=== PATIENT | female | born 1965 | race Caucasian/White ===

== ENCOUNTER 2017-08-05 07:46 | Emergency (ER) | payer OTHER ==
--- NOTE | 2017-08-05 09:00 | RAD ---
INDICATION: Possible jaw dislocation after yawning COMPARISON: None. TECHNIQUE: 5 views of the mandible were obtained. FINDINGS: Depicted best on the lateral view image there appears to be anterior dislocation of the mandibular head from the mandibular fossa of the temporal bone. Frontal radiograph indicates this is on the left side. There is no fracture identified. IMPRESSION: Radiographic findings are consistent with anterior left temporal mandibular dislocation. Please correlate to physical examination.
[2017-08-05] MEDS ORDERED: Naloxone* 0.4 MG/ML 1 ML VIAL ONE (10:48)
[2017-08-05] MEDS ORDERED: Flumazenil* 0.1 MG/ML 5 ML MDV ONE (10:48)
[2017-08-05] MEDS ORDERED: Midazolam* 1 MG/ML 10 ML VIAL (10 MG) ONE (10:50)
[2017-08-05] MEDS: fentaNYL* 50 MCG/ML 2 ML VIAL (100 MCG VIAL) IV SLOW PU ONE ×2 (11:05→11:56)
[2017-08-05] MEDS: Ondansetron INJ* 2 MG/ML VIAL IV ONE ×2 (11:07→11:57)
[2017-08-05] MEDS ORDERED: Ondansetron INJ* 2 MG/ML VIAL ONE (11:07)
[2017-08-05] MEDS: Midazolam* 1 MG/ML 2 ML VIAL (2 MG) IV ONE ×3 (11:09→11:57)
--- NOTE | 2017-08-05 12:30 | RAD ---
INDICATION: Atraumatic jaw dislocation COMPARISON: August 05, 2017 TECHNIQUE: 3 views are submitted FINDINGS: The current plain radiograph shows no definitive evidence of dislocation. If this is not the clinical impression, suggest CT imaging. There is no acute bony change. IMPRESSION: NO DEFINITIVE DISLOCATION (SEE ABOVE).
[2017-08-05 13:36] VITALS: BP 111/49
--- NOTE | 2017-08-05 15:07 | ED ---
Throat Pain/Nasal Congestion - HPI Summary HPI Summary: Patient is a 52-year-old female who presents to the ED with a right sided jaw dislocation after yawning this morning approximately 3 hours prior to arrival. Denies any other symptoms. Endorses 5 out of 10 pain. She continues to be able to talk. She endorses 2 other times of her jaw dislocating, and states previously they had to sedate her to get it reduced. She denies any health problems, takes no medications and is otherwise healthy. - History of Current Complaint Chief Complaint: EDGeneral Time Seen by Provider: 08/05/17 08:58 Hx Obtained From: Patient Onset/Duration: Sudden Onset Severity: Mild Associated Signs And Symptoms: Positive: Negative - Epiglottits Risk Factors Epiglottis Risk Factors: Negative - Allergies/Home Medications Allergies/Adverse Reactions: Allergies Allergy/AdvReac Type Severity Reaction Status Date / Time unknown antibiotic Allergy Rash Uncoded 08/05/17 08:18 PMH/Surg Hx/FS Hx/Imm Hx Previously Healthy: Yes - Cancer History Hx Chemotherapy: No Hx Radiation Therapy: No - Surgical History Surgery Procedure, Year, and Place: FATTY LIPOMA RIGHT ARMPIT 1997, BENIGN LUMP REMOVED RIGHT BREAST 2011 - Immunization History Hx Pertussis Vaccination: No Immunizations Up to Date: Unable to Obtain/Confirm Infectious Disease History: Yes Infectious Disease History: Denies: Traveled Outside the [place] in Last 30 Days - Social History Occupation: Employed Full-time Lives: With Family Alcohol Use: Weekly Hx Substance Use: No Substance Use Type: Reports: None Hx Tobacco Use: No Smoking Status (MU): Never Smoked Tobacco Review of Systems Constitutional: Negative Negative: Fever, Chills, Fatigue Eyes: Negative Positive: Other - jaw dislocation Cardiovascular: Negative Respiratory: Negative Genitourinary: Negative Positive: no symptoms reported, see HPI Musculoskeletal: Negative Psychological: Normal All Other Systems Reviewed And Are Negative: Yes Physical Exam Triage Information Reviewed: Yes Vital Signs On Initial Exam: Initial Vitals Temp Pulse Resp BP Pulse Ox 97.6 F 59 16 122/63 96 08/05/17 07:55 08/05/17 07:55 08/05/17 07:55 08/05/17 07:55 08/05/17 07:55 Vital Signs Reviewed: Yes Appearance: Positive: Well-Appearing, Well-Nourished Skin: Positive: Warm, Skin Color Reflects Adequate Perfusion Head/Face: Positive: TMJ Tenderness - Jaw dislocation to the right Eyes: Positive: EOMI, JI, Conjunctiva Clear Neck: Positive: Supple, Nontender, No Lymphadenopathy Respiratory/Lung Sounds: Positive: Clear to Auscultation, Breath Sounds Present Cardiovascular: Positive: Normal, RRR, Pulses are Symmetrical in both Upper and Lower Extremities Musculoskeletal: Positive: Normal, Strength/ROM Intact Neurological: Positive: Speech Normal Psychiatric: Positive: Normal, Affect/Mood Appropriate Diagnostics - Vital Signs Vital Signs Temp Pulse Resp BP Pulse Ox 08/05/17 13:34 98.0 F 48 18 111/49 100 08/05/17 13:14 118/53 08/05/17 13:12 47 100 08/05/17 13:00 45 120/53 100 08/05/17 12:46 47 144/96 100 08/05/17 12:42 113/56 08/05/17 11:45 43 105/54 99 08/05/17 11:42 46 107/56 99 08/05/17 11:40 45 106/53 99 08/05/17 11:35 45 107/55 98 08/05/17 11:32 47 104/55 97 08/05/17 11:30 44 107/56 98 08/05/17 11:27 54 108/59 97 08/05/17 11:25 50 114/58 97 08/05/17 11:22 51 107/81 97 08/05/17 11:20 50 111/52 97 08/05/17 11:17 56 115/53 96 08/05/17 11:15 57 111/65 96 08/05/17 11:12 62 122/59 98 08/05/17 11:10 55 122/67 100 08/05/17 11:05 61 138/71 100 08/05/17 11:00 58 100 08/05/17 10:00 59 100 08/05/17 09:00 51 100 08/05/17 08:07 61 99 08/05/17 08:05 120/67 08/05/17 07:55 97.6 F 59 16 122/63 96 - Laboratory Lab Statement: Any lab studies that have been ordered have been reviewed, and results considered in the medical decision making process. EENT Course/Dx - Course Course Of Treatment: During the course of treatment, the patient is evaluated for right-sided jaw dislocation. On x-ray: IMPRESSION: Radiographic findings are consistent with anterior left temporal mandibular. dislocation. Dr. Persaud provided conscious sedation with fentanyl and Versed with effect. Manipulation of the jaw with successful relocation. Status post reduction films shows no dislocation in place and patient is talking well. Prior to arrival her heart rate is noted to be a 48. She states this is consistent for her and she is asymptomatic. She is ambulatory around the ED twice with no increase in heart rate. I have advised she follow up on this, however I am comfortable with sending her home in the accompaniment of her family member. - Diagnoses Provider Diagnoses: Dislocation of jaw, right side, initial encounter Discharge - Discharge Plan Condition: Stable Disposition: HOME Patient Education Materials: Mandibular Dislocation (ED) Referrals: Jose Alberto Mendoza MD [Primary Care Provider] - Additional Instructions: Tylenol 650 mg for any discomfort
--- NOTE | 2017-08-06 18:45 | ED ---
Ismael Gonzales Thomas, scribed for Mina Persaud MD on 08/05/17 at 1831 . Progress - Progress Note Progress Note: I was asked by Arcelia Cuenca to help reduce a jaw dislocation with conscious sedation for this patient. PROCEDURE NOTE: PROCEDURE NOTE: Procedural Sedation Indications: Jaw dislocation [place] Protocol: a timeout was performed and the correct patient and site were verified Consent: The risks and benefits of monitored anesthesia care, including the risk of aspiration, deep sedation requiring airway management including possible intubation, nausea and vomiting and the risks of not performing the procedure, including severe pain and inability to complete the procedure, were all discussed with the patient. The alternatives of performing the procedure, including local anesthesia and IV analgesia, also discussed. The patient has a ride home available. ASA Class: II-mild systemic disease Pre-anesthesia evaluation, including history, exam, and informed consent is documented in the ED note above. Monitoring: Continuous monitoring of heart rate, respiratory rate, pulse oximetry and ETCO2. Supplemental oxygen prior to and during procedure via nasal cannula. Resuscitation equipment available at the bedside during sedation. The patient received Versed and Fentanyl and dosages were recorded on the sedation form. The patient was recovered from the sedation without complication or incident. Patient returned to pre-sedation level of awareness. The monitoring was discontinued at this time. Post-anesthesia evaluation: Respiratory function, cardiovascular function, temperature, and mental status did return to pre-anesthetic state. Pain is controlled. The jaw dislocation was successfully reduced. At this point, the patient is alert and oriented x3. Arcelia Hewitt will continue with assessment and treatment of the patient. The documentation as recorded by the Ismael callahan Thomas accurately reflects the service I personally performed and the decisions made by Hung rubio Walter, MD.
== END 2017-08-05 13:36 | disposition home or self-care (01) ==
LOC: ED 07:46
DX: S03.01XA Dislocation of jaw, right side, initial encounter (principal); X58.XXXA Exposure to other specified factors, initial encounter; Y92.9 Unspecified place or not applicable
CPT/HCPCS: 21480; 70110; 96374; 96375; 99284; J2250; J2310; J2405; J3010

== ENCOUNTER 2019-02-25 15:38 | Emergency (ER) | payer OTHER ==
[2019-02-25 15:44] VITALS: BP 129/71
--- NOTE | 2019-02-25 18:43 | ED ---
Skin Complaint - HPI Summary HPI Summary: Patient complains of waking up with circular bruise with possible puncture winslow inside it on medial left arm this morning. Patient states she slept in an old building last night and is concerned for possible bat bite. Patient states she never saw any bats. Denies any other pain injury or symptoms. Denies itching or pain. - History of Current Complaint Chief Complaint: EDRashSkinAbscess Time Seen by Provider: 02/25/19 17:47 Stated Complaint: BITE ON LT ARM PER PT Hx Obtained From: Patient Onset/Duration: Started Hours Ago Skin Exposure Onset/Duration: Hours Ago Timing: Constant Current Severity: None Pain Intensity: 0 Pain Scale Used: 0-10 Numeric Aggravating Symptom(s): Nothing Alleviating Symptom(s): Nothing Associated Signs & Symptoms: Negative - Allergy/Home Medications Allergies/Adverse Reactions: Allergies Allergy/AdvReac Type Severity Reaction Status Date / Time unknown antibiotic Allergy Rash Uncoded 08/05/17 08:18 Home Medications: Home Medications LevoCETirizine TAB (NF) [Xyzal TAB (NF)] 5 mg PO DAILY 02/25/19 [History Confirmed 02/25/19] PMH/Surg Hx/FS Hx/Imm Hx Endocrine/Hematology History: Denies: Hx Anticoagulant Therapy Cardiovascular History: Denies: Hx Pacemaker/ICD History: Denies: Hx Dialysis Sensory History: Denies: Hx Eye Prosthesis Opthamlomology History: Denies: Hx Legally Blind EENT History: Denies: Hx Deafness Neurological History: Denies: Hx Dementia - Cancer History Hx Chemotherapy: No Hx Radiation Therapy: No - Surgical History Surgery Procedure, Year, and Place: FATTY LIPOMA RIGHT ARMPIT 1997, BENIGN LUMP REMOVED RIGHT BREAST 2011 Infectious Disease History: No Infectious Disease History: Denies: Traveled Outside the [place] in Last 30 Days - Family History Known Family History: Positive: Non-Contributory - Social History Alcohol Use: Weekly Hx Substance Use: No Substance Use Type: Reports: None Hx Tobacco Use: No Smoking Status (MU): Never Smoked Tobacco Review of Systems Constitutional: Negative Eyes: Negative ENT: Negative Cardiovascular: Negative Respiratory: Negative Gastrointestinal: Negative Genitourinary: Negative Musculoskeletal: Negative Positive: Bruising Neurological: Negative Psychological: Normal All Other Systems Reviewed And Are Negative: Yes Physical Exam - Summary Physical Exam Summary: 2 cm x 2 cm circular area of ecchymosis with four pinpoint scabs. Pinpoint scabs appear in random order. No pain with palpation. No extra warmth Triage Information Reviewed: Yes Vital Signs On Initial Exam: Initial Vitals Temp Pulse Resp BP Pulse Ox 98.1 F 63 12 129/71 99 02/25/19 15:42 02/25/19 15:42 02/25/19 15:42 02/25/19 15:42 02/25/19 15:42 Vital Signs Reviewed: Yes Appearance: Positive: Well-Appearing Skin: Positive: Warm Head/Face: Positive: Normal Head/Face Inspection Eyes: Positive: Normal ENT: Positive: Normal ENT inspection Neck: Positive: Supple Respiratory/Lung Sounds: Positive: Clear to Auscultation Cardiovascular: Positive: Normal Abdomen Description: Positive: Nontender Musculoskeletal: Positive: Normal Neurological: Positive: Normal Psychiatric: Positive: Normal AVPU Assessment: Alert - Lilly Coma Scale Best Eye Response: 4 - Spontaneous Best Motor Response: 6 - Obeys Commands Best Verbal Response: 5 - Oriented Coma Scale Total: 15 Diagnostics - Vital Signs Vital Signs Temp Pulse Resp BP Pulse Ox 02/25/19 15:42 98.1 F 63 12 129/71 99 - Laboratory Lab Statement: Any lab studies that have been ordered have been reviewed, and results considered in the medical decision making process. Course/Dx - Course Course Of Treatment: Patient complains of waking up with circular bruise with possible puncture winslow inside it on medial left arm this morning. Patient states she slept in an old building last night and is concerned for possible bat bite. Patient states she never saw any bats. Denies any other pain injury or symptoms. Denies itching or pain. Vital signs within normal limits. Discussed patient with Cheri Hernandez from [facility] who stated patient did not meet criteria for possible exposure nor authorization of rabies treatment. - Diagnoses Provider Diagnoses: Bruising Discharge ED - Sign-Out/Discharge Documenting (check all that apply): Patient Departure Patient Received Moderate/Deep Sedation with Procedure: No - Discharge Plan Condition: Stable Disposition: HOME Patient Education Materials: Animal Bite (ED), Insect Bite or Sting (ED) Referrals: Jose Alberto Mendoza MD [Primary Care Provider] - Additional Instructions: For any further questions please contact [facility] department at [phone]. - Billing Disposition and Condition Condition: STABLE Disposition: Home
== END 2019-02-25 19:16 | disposition home or self-care (01) ==
LOC: ED 15:38
DX: S40.022A Contusion of left upper arm, initial encounter (principal); W64.XXXA Exposure to other animate mechanical forces, initial encounter; Y92.9 Unspecified place or not applicable; Z79.899 Other long term (current) drug therapy
CPT/HCPCS: 99282

== ENCOUNTER 2019-08-09 15:17 | Observation (INO) | payer OTHER ==
--- NOTE | 2019-08-09 15:33 | ED ---
Neurological HPI - HPI Summary HPI Summary: 54 year old F arriving via private car complains of intermittent episodes of dysarthria, aphasia, slurred speech starting Tuesday08/06/2019 PM while speaking in work meeting. Patient states that during this meeting, she realized the thoughts that she was thinking in her head were not the words coming out of her mouth. Patient reports difficulty finding words and slurred speech then. She states she thought she may not have eaten well Sunday 08/06 so she tried to eat better on Monday 08/07 and Tuesday 08/08. She states she primarily notices symptoms in work meetings. She states that she was concerned about job dysfunction today so she called her primary care provider who referred her to the ED. Patient notes no change in symptoms today. Patient reports some blurred vision. Patient denies fever, chills, erythema of eyes, sore throat, chest pain , shortness of breath, cough, abdominal pain, nausea/vomiting, dysuria, hematuria, myalgia, edema, rash, dizziness, unsteady gait, any new numbness or tingliness in extremities. Medications reviewed. Allergies reviewed. No PMHx hypertension. 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 Patient states her cousin has MS-like symptoms. - History of Current Complaint Stated Complaint: STROKE LIKE SYMPTOMS Hx Obtained From: Patient Onset/Duration: Started days ago - 08/06/2019 PM, Still Present Timing: Intermittent Episodes Lasting: - Allergy/Home Medications Allergies/Adverse Reactions: Allergies Allergy/AdvReac Type Severity Reaction Status Date / Time unknown antibiotic Allergy Rash Uncoded 08/05/17 08:18 PMH/Surg Hx/FS Hx/Imm Hx Endocrine/Hematology History: Denies: Hx Anticoagulant Therapy Cardiovascular History: Denies: Hx Hypertension Respiratory History: Reports: Hx Seasonal Allergies History: Denies: Hx Dialysis Sensory History: Reports: Hx Contacts or Glasses Opthamlomology History: Reports: Hx Contacts or Glasses - Cancer History Hx Chemotherapy: No Hx Radiation Therapy: No - Surgical History Surgery Procedure, Year, and Place: FATTY LIPOMA RIGHT ARMPIT 1997, BENIGN LUMP REMOVED RIGHT BREAST 2011 - Family History Known Family History: Positive: Other - NEG: stroke Family History: cousin has MS-like symptoms - Social History Alcohol Use: Weekly Hx Substance Use: No Substance Use Type: Reports: None Hx Tobacco Use: No Smoking Status (MU): Never Smoked Tobacco Review of Systems Negative: Fever, Chills Positive: Blurred Vision. Negative: Erythema Negative: Sore Throat Negative: Chest Pain Negative: Shortness Of Breath, Cough Negative: Abdominal Pain, Vomiting, Nausea Negative: dysuria, hematuria Negative: Myalgia, Edema Negative: Rash Neurological/Mental Status: Negative - Dizziness, unsteady gait, numbness or tingliness in extremities, Other - dysarthria, aphasia Positive: Slurred Speech All Other Systems Reviewed And Are Negative: Yes Physical Exam - Summary Physical Exam Summary: Constitutional: Well-developed, Well-nourished, Alert. (-) Distressed Skin: Warm, Dry HENT: Normocephalic; Atraumatic Eyes: Conjunctiva normal Neck: Musculoskeletal ROM normal neck. (-) JVD, (-) Stridor, (-) Tracheal deviation Cardio: Rhythm regular, rate normal, Heart sounds normal; Intact distal pulses; The pedal pulses are 2+ and symmetric. Radial pulses are 2+ and symmetric. (-) Murmur Pulmonary/Chest wall: Effort normal. (-) Respiratory distress, (-) Wheezes, (-) Rales Abd: Soft. (-) Tenderness, (-) Distension, (-) Guarding, (-) Rebound Musculoskeletal: (-) Edema Lymph: (-) Cervical adenopathy Neuro: Alert, Oriented x3, Strength normal, Cranial nerves II-XII are grossly intact. (-) Dysmetria, (-) Nystagmus, (-) Ataxia by finger to nose testing, (-) Sensory deficit. Psych: Mood and affect Normal Triage Information Reviewed: Yes Vital Signs Reviewed: Yes Procedures - Sedation Patient Received Moderate/Deep Sedation with Procedure: No Diagnostics - Laboratory Result Diagrams: 08/09/19 15:39 08/09/19 15:39 Lab Statement: Any lab studies that have been ordered have been reviewed, and results considered in the medical decision making process. - CT Head CTA CT Interpretation Completed By: Radiologist Summary of CT Findings: 1. NO EVIDENCE FOR CAROTID STENOSIS. 2. NO EVIDENCE FOR LARGE VESSEL INTRACRANIAL THROMBUS. ED physician has reviewed this report. - EKG 1535 Cardiac Rate: Bradycardia - 57 BPM EKG Rhythm: Sinus Bradycardia Summary of EKG Findings: No STEMI. ED physician has reviewed and interpreted this EKG. - Additional Comments Diagnostic Additional Comments: Brain MRI shows, per radiologist: No acute intracranial abnormality. No imaging evidence of demyelination. ED physician has reviewed this report. Re-Evaluation - Re-Evaluation First Eval Re-Evaluation Time: 17:25 Comment: patient is agreeable to admission Course/Dx - Course Course Of Treatment: 54 y/o F with no pertinent PMHx presents with intermittent episodes of dysarthria, aphasia, slurred speech, blurred vision starting Tuesday08/06/2019 PM while speaking in work meeting. During this meeting, she realized the thoughts that she was thinking in her head were not the words coming out of her mouth, she had difficulty finding words and was having slurred speech. She continued to have similar episodes over the next two days during work meetings. Patient notes no change in symptoms today. No PMHx hypertension. 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 Physical exam unremarkable. Neuro exam normal. Any dysarthria or aphasia she may have is quite subtle. Bloodwork results with no significant abnormalities except for AST 11. An EKG shows sinus bradycardia 57 BPM. No STEMI. Head CTA shows 1. NO EVIDENCE FOR CAROTID STENOSIS. 2. NO EVIDENCE FOR LARGE VESSEL INTRACRANIAL THROMBUS. Brain MRI shows No acute intracranial abnormality. No imaging evidence of demyelination. Dr. Piper, neurology, recommends overnight observation, telemetry , and echocardiogram in the morning, and to appropach patient as if she has TIA. Dr. Flores, hospitalist, agrees to admit patient. The patient is agreeable to this plan. - Diagnoses Provider Diagnoses: Hypertensive crisis, TIA (transient ischemic attack), Slurred speech - Physician Notifications Discussed Care Of Patient With: Jesse Piper Time Discussed With Above Provider: 17:20 Instructed by Provider To: Other - Dr. Piper neurology recommends overnight observation, telemetry, and echocardiogram in the morning, and to appropach patient as if she has TIA. 1731 Dr. Flores hospitalist agrees to admit patient Discharge ED - Sign-Out/Discharge Documenting (check all that apply): Patient Departure - Discharge Plan Condition: Stable Disposition: ADMITTED TO [facility] Referrals: Jose Alberto Mendoza MD [Primary Care Provider] - - Attestation Statements Document Initiated by Scribe: Yes Documenting Scribe: Merary Patel Provider For Whom Scribe is Documenting (Include Credential): Devon Alamo MD Scribe Attestation: Merary Gonzales, scribed for Devon Alamo MD on 08/09/19 at 1751. Status of Scribe Document: Ready
[2019-08-09 15:57] LABS: ABS Eosinophils 0.1 10^3/ul (0-0.6); ABS Lymphocytes 2.2 10^3/ul (1.0-4.8); ABS Monocytes 0.5 10^3/ul (0-0.8); Eosinophil % 1.2 %; Hematocrit 37 % (35-47); Hemoglobin 12.5 g/dL (12.0-16.0); Lymphocyte % 32.3 %; Mean Corpuscular HGB Conc 34 g/dL (31-36); Mean Corpuscular Hemoglobin 31 pg (27-31); Mean Corpuscular Volume 93 fL (80-97); Mean Platelet Volume 7.9 fL (7.4-10.4); Platelet Count 335 10^3/uL (150-450); Red Blood Count 4.01 10^6 /uL (3.70-4.87); Red Cell Distribution Width 13 % (10-15); White Blood Count 6.8 10^3/uL (3.5-10.8)
[2019-08-09] MEDS ORDERED: Gadoteridol* (CONTRAST) 279.3 MG/ML 10 ML IV ONE (16:03)
[2019-08-09 16:14] LABS: Albumin 4.2 g/dL (3.2-5.2); Albumin/Globulin Ratio 1.7 (1-3); BUN/Creatinine Ratio 17.6 (8-20); EGFR Non-African American 70.2 (>60); Globulin 2.5 g/dL (2-4); Potassium 3.8 mmol/L (3.5-5.0); Total Bilirubin 0.4 mg/dL (0.2-1.0); Total Protein 6.7 g/dL (6.4-8.9)
[2019-08-09] MEDS ORDERED: Iohexol 350* (CONTRAST) 500 ML MDV IV ONE (16:49)
[2019-08-09] MEDS ORDERED: Acetaminophen TAB* 325 MG PO PRN (18:06)
[2019-08-09] MEDS ORDERED: Aspirin 81 mg CHEW TAB* 81 MG TAB.CHEW PO ONE (19:08)
--- NOTE | 2019-08-09 20:20 | HP ---
CC: Dr. Mendoza * HISTORY AND PHYSICAL: DATE OF ADMISSION: 08/09/19 PROVIDER: Angela Crane NP PRIMARY CARE PROVIDER: Dr. Mendoza. ATTENDING PHYSICIAN WHILE IN THE HOSPITAL: Dr. Sarah Mendosa * (dictated by Angela Crane NP). CHIEF COMPLAINT: Slurred speech. HISTORY OF PRESENT ILLNESS: Ms. Gonzalez is a 54-year-old female with a past medical history significant for asthma and melanoma, who presented to the emergency room after experiencing several episodes of jumbled speech and slurred speech. The patient does report that she has difficulty with word finding and an enunciating words and slurred speech during her meetings. The patient reports that she typically does not have any issues with talking or presenting in meetings as this is a normal routine for her. The patient reports she has the words in her head that she wants to say and she goes to say them and reports that the words do not come out right, the words are garbled and slurred. She does report that this started on Tuesday. She also reports that during these episodes, she has blurred vision. She reports that she takes her glasses off and puts her glasses back on and there is no change. She feels that her vision is blurred with these episodes and due to these symptoms, she presented to the emergency room for further evaluation. The patient denies any recent fever, chills, unintended weight loss, chest pain, edema, cough, hemoptysis, shortness of breath, nausea, vomiting, diarrhea, or abdominal pain. Denies any gross hematuria, dysuria, focal weakness, or sensory loss. She does report a blurred vision. She denies any difficulty swallowing, dizziness. Denies any arthralgias, myalgias, rashes, lesions, open sores. She does report some increased anxiety and increased stress. While in the emergency room, the patient had routine lab work drawn. She had an MRI of the brain that was within normal limits. She had a CT of the head that showed no evidence of stenosis. Dr. Piper from Neurology was consulted and recommended admission for observation overnight and a transthoracic echocardiogram in the a.m. Due to this, the Hospital Medicine was contacted for admission. PAST MEDICAL HISTORY: Significant for: 1. Asthma. 2. Melanoma. PAST SURGICAL HISTORY: Melanoma removed from the skin, lumpectomy and tonsillectomy. HOME MEDICATIONS: Include Xyzal 1 tablet p.o. daily. ALLERGIES: ANCEF causes a rash. FAMILY HISTORY: Father collapsed and at the age of 64 from suspected [place]. Paternal grandmother with diabetes and father with a history of bone cancer. SOCIAL HISTORY: Denies any tobacco or illicit drug use. She does report occasional alcohol use. Surrogate decision maker in the event she is unable to make her own decisions is her , Misael. She is a full code. REVIEW OF SYSTEMS: A 14-point review of systems was completed. All pertinent positives were mentioned in the HPI. PHYSICAL EXAMINATION GENERAL: At this time, Ms. Gonzalez is a 54-year-old female. She is alert and oriented, resting on the stretcher in the emergency room. She is in no acute distress. VITAL SIGNS: Blood pressure 134/89, heart rate 60, respirations 16, O2 saturation 98%, temperature was 98.3. HEENT: Head is atraumatic, normocephalic. Eyes: EOMs are intact. Sclerae anicteric and not pale. Oral mucosa is moist. NECK: Supple. LUNGS: Clear to auscultation bilaterally. No wheezes, rales, or rhonchi. CARDIAC: S1, S2. Regular rate and rhythm. No murmurs, rubs, or gallops. ABDOMEN: Soft and nontender. Bowel sounds are present x4. EXTREMITIES: She is able to move all 4 extremities. There is no clubbing or cyanosis. NEUROLOGIC: She is awake, alert, oriented x3. Speech is clear. Thought process is intact. Mfqakg-zt-[id number] is intact. There is no pronator drift. There is no leg drift. Smile is equal. Tongue is midline. There is no facial asymmetries. Sensation is intact to all 4 extremities. SKIN: Intact. DIAGNOSTIC STUDIES/LAB DATA: WBCs are 6.8, RBCs 4.01, hemoglobin 12.5, hematocrit 37, platelet count 335. Sodium 139, potassium 3.8, chloride 107, carbon dioxide is 27, anion gap is 5, BUN is 15, creatinine 0.85, glucose 87, lactic acid 1.3, calcium 9.0. Total bilirubin 0.40, ASTs were 11, ALTs were 11 , alkaline phosphatase was 42. Troponin was 0.00 x2. She had a CT of the head that showed no evidence of carotid stenosis, no evidence of large vessel intracranial thrombus. She had an MRI of the brain, radiologist's impression: No acute intracranial abnormality. No imaging evidence of demyelination. She had electrocardiogram, which showed sinus bradycardia at a rate of 57. No ST or T-wave changes. ASSESSMENT AND PLAN: Ms. Gonzalez is a 54-year-old female with a past medical history significant for asthma and melanoma, who presented to the emergency room with garbled and slurred speech, who will be admitted under observation: 1. Speech disturbance. It is unclear at this time the cause of he speech disturbance. The patient reports that this is only notable when she is in meetings and is associated with blurred vision. She did have a CTA of the head and neck that showed no large vessel occlusion and no stenosis. She had an MRI of the brain that showed no acute pathology. At this time, she has no neurological deficits. Dr. Piper from Neurology was consulted and recommended observation admission for a transthoracic echocardiogram in the morning. The patient will be placed under observation. She will have neuro checks q.4 hours. I will give her aspirin 324 mg. I will get a lipid profile in the a.m. and a transthoracic echocardiogram with bubble study. 2. Diet: She can have a regular diet. 3. Code status: She is a full code. 4. DVT prophylaxis: I will place her on LUCIA stockings. She can ambulate ad- ish. TIME SPENT: Time spent on this admission was 60 minutes, greater than half that time was spent at the bedside reviewing events leading thus far to her hospitalization, performing physical exam, and reviewing my plan of care. I have discussed this with my attending, Dr. Sarah Mendosa; she is in agreement with my plan. ANGELA CRANE, DIESEL TECHNICIAN [id number]/[facility] #: [id number] SHIRIN
[2019-08-09 22:56] LABS: C Reactive Protein < 1.00 mg/L (<8.01)
[2019-08-09 23:02] LABS: Rheumatoid Factor < 10 IU/mL (<15)
[2019-08-09 23:17] LABS: TSH (Thyroid Stimulating Horm) 1.64 mcIU/mL (0.34-5.60)
[2019-08-09 23:22] LABS: Free T4 0.95 ng/dL (0.61-1.12)
[2019-08-09 23:29] LABS: Folate 13.48 ng/mL (>3.99)
[2019-08-10 07:07] LABS: HDL Cholesterol 61.4 mg/dL
--- NOTE | 2019-08-10 13:05 | ECHO ---
*[facility]* [place] [address] Fax #: [phone] Transthoracic Echocardiogram Patient: Laverne Gonzalez : 1965 Study Date: 08/10/2019 Age: 54 Gender: F HR: 53 bpm Height: 65 in /165.1 cm BSA: 1.72 m^2 Weight: 142.7 lb /64.9 kg BMI: 23.8 kg/m^2 *Administrative Program Specialist: * Ruby Kendrick [facility] *Referring Physician: * Angela Crane *Reading Physician: * Darren Donnelly MD Indications: TIA. History: Asthma. Melanoma. Conclusions Summary: - Left ventricle: The cavity size is normal. Wall thickness is normal. Systolic function is normal. The estimated ejection fraction is 60-65%. Wall motion is normal; there are no regional wall motion abnormalities. - Right ventricle: The cavity size is normal. Systolic function is normal. - Left atrium: The atrium is normal in size. - Atrial septum: Negative Bubble Study. Images 95 and 96. - Pericardium, extracardiac: There is no significant pericardial effusion. - Pulmonary arteries: Systolic pressure can not be accurately estimated. - No significant valvular abnormalities noted. Recommendations: None prior for comparison at time of interpretation. Study data: Transthoracic echocardiogram. Procedure: Transthoracic echocardiography was performed. Image quality was fair. The study was technically limited due to lung interference. A bubble study was performed. Complete 2D, spectral Doppler, and color flow Doppler. Location: Bedside. Patient status: Inpatient. Patient room number: 441-02. Rhythm: Bradycardia. Findings Left ventricle: The cavity size is normal. Wall thickness is normal. Systolic function is normal. The estimated ejection fraction is 60-65%. Wall motion is normal; there are no regional wall motion abnormalities. Left ventricular diastolic function parameters are normal. Right ventricle: The cavity size is normal. Systolic function is normal. Left atrium: The atrium is normal in size. Right atrium: The atrium is normal in size. Atrial septum: A PFO is not demonstrated by color Doppler or agitated saline contrast. Negative Bubble Study. Images 95 and 96. Mitral valve: The leaflets are mildly thickened. There is no evidence of stenosis. There is trace to mild regurgitation. Aortic valve: Not well visualized. The valve is trileaflet. The leaflets are mildly thickened. There is no evidence of stenosis. There is trace regurgitation. Tricuspid valve: The leaflets are normal thickness. There is no evidence of stenosis. There is trace regurgitation. Pulmonic valve: Not well visualized. There is no evidence of stenosis. There is trace regurgitation. Aorta: Aortic root: The aortic root is appears normal. Ascending aorta: The ascending aorta is appears normal. Aortic arch: The aortic arch is appears normal. Pericardium: There is no significant pericardial effusion. Pulmonary arteries: The main pulmonary artery is normal-sized. Systolic pressure can not be accurately estimated. Systemic veins: Inferior vena cava: The vessel is normal in size. There is (>= 50%) respiratory change in the IVC dimension. Measurements Left ventricle Value Ref Aortic valve Value Ref ANGELINA, LAX 3.9 cm 3.8 - 5.2 Jacqueline diam, ED 1.9 cm ---- ESD, LAX 2.5 cm 2.2 - 3.5 Peak v, S 1.45 m/sec ---- FS, LAX 36 % 27 - 45 VTI, S 31.0 cm ---- PW, ED, LAX 0.8 cm 0.6 - 0.9 Mean grad, S 3.0 mm Hg ---- FS 36 % 27 - 45 Peak grad, S 8.0 mm Hg ---- PW, ED 0.8 cm 0.6 - 0.9 LVOT/AV, VTI ratio 0.87 ---- E', lat jacqueline, TDI 13.1 cm/sec >=10.0 E/e', lat jacqueline, 8 Mitral valve Value Ref TDI Peak E 1.05 m/sec ---- E', med jacqueline, TDI 10.1 cm/sec >=7.0 Peak A 0.49 m/sec -- -- E/e', med jacqueline, 10 Decel time 218 ms ---- TDI Peak grad, D 4.4 mm Hg ---- E', avg, TDI 11.6 cm/sec Peak E/A ratio 2.1 ---- E/e', avg, TDI 9 <=14 Pulmonic valve Value Ref LVOT Value Ref Peak v, S 0.96 m/sec ---- Peak lisette, S 1.27 m/sec Peak grad, S 4.0 mm Hg ---- VTI, S 27.0 cm Peak grad, S 6 mm Hg Aortic root Value Ref Mean grad, S 3 mm Hg Root diam 3.1 cm <3.9 Ventricular septum Value Ref Ascending aorta Value Ref IVS, ED 0.8 cm 0.6 - 0.9 AAo AP diam, S 3.3 cm ---- Right ventricle Value Ref Aortic arch Value Ref ANGELINA, LAX 2.7 cm Arch diam 1.9 cm ---- ANGELINA minor ax, A4C 3.2 cm 1.9 - 3.5 mid Decending aorta Value Ref Skyla peak lisette 1.01 m/sec ---- Left atrium Value Ref AP dim, ES 3.00 cm 2.70 - Inferior vena cava Value Ref 3.80 Diam 1.9 cm ---- ML dim, A4C 4.5 cm SI dim, A4C 4.8 cm Vol/bsa, ES, 1-p 25 ml/m^2 11 - 40 A4C Vol/bsa, ES, A/L 24 ml/m^2 16 - 34 Right atrium Value Ref SI dim, ES 4.6 cm 3.4 - 5.3 ML dim, ES, A4C 3.0 cm 2.6 - 4.4 Estimated RAP 3 mm Hg Legend: (L) and (H) oumar values outside specified reference range. Prepared and electronically signed by Darren Donnelly MD 08/10/2019 13:05
--- NOTE | 2019-08-10 13:18 | CONS ---
CONSULTATION REPORT: DATE OF CONSULT: 08/10/19 PRIMARY CARE PHYSICIAN: Dr. Mendoza. REASON FOR CONSULTATION: Slurred speech. HISTORY OF PRESENT ILLNESS: Ms. Gonzalez is a very nice 54-year-old female with a history of asthma and melanoma, followed regularly by Dermatology, who is a [facility] woman and has been in her usual state of health, but over this last week has noticed several episodes of slurred speech. She notes that during meetings over the last week she has had episodes where her speech would become somewhat stuttery or slurred, she would have some difficulty getting the words out and felt some hesitancy when trying to speak. She is unclear if anybody else noticed this, but she does not feel like that they did. These tended to happen only when she was in a meeting and they have happened several times throughout the week. Each time it was not associated with any numbness or tingling, facial droop that she is aware of, loss of vision although she does note some blurry vision and noticed some pressure across the front of her head. No focal weakness. No palpitations or chest pain. No shortness of breath. No sweating. She otherwise had no associated symptoms. There is no known triggers that she is aware of. She has no history of migraine headaches in the past with focal neurologic symptoms. She has no history of stroke or seizures in the past. She notes no family history of seizures, no history of head trauma, no history of meningitis, no febrile seizures as a child and no issues. She denies any recent fevers, chills, nausea, vomiting, diarrhea, constipation. She does note during one of the initial episode, she had not eaten all day, so she was very careful to try to eat for the rest of the week and that the symptoms continued to happen despite the fact that she was eating better. She denies any problems swallowing with these. She denies any dizziness with these. She denies any recent injuries, myalgias, rashes, lesions, but has had some increased stress due to some issues at home and she is in a fairly high stress job. Again, she has never had any symptoms similar to this in the past. In the ER she had a workup including an MRI of the brain that showed no acute abnormalities. She had a CT angiogram of the head and neck that showed no evidence of stenosis or vascular abnormalities. She was admitted for TIA work up and overnight has had no further symptoms. This morning she feels okay. She feels like her speech is fairly normal. Although during my interview with her, she had a couple of episodes where she had a hard time pronouncing a word. She otherwise denies any symptoms. She has had no palpitations overnight. She has no current headache, no visual symptoms, and feels generally normal. PAST MEDICAL HISTORY: As noted above. PAST SURGICAL HISTORY: Includes: 1. Melanoma removal from the skin. 2. Lumpectomy 3. Tonsillectomy. HOME MEDICATIONS: Xyzal one tablet daily. ALLERGIES: ANCEF. FAMILY HISTORY: Father with an [place] and bone cancer and grandmother with a history of diabetes. SOCIAL HISTORY: No tobacco, alcohol or drug use. She has children. She lives at home. She only drinks very rarely and socially. She is and her is the surrogate decision maker. REVIEW OF SYSTEMS: Review of systems of 14 organ systems as noted above otherwise negative. PHYSICAL EXAMINATION: Vital Signs: Temperature is 97.8, pulse rate 56, respiratory rate 16, O2 saturation 97%, blood pressure 110/57 to 112/58 to 109/ 62. Telemetry overnight she did have some bradycardia, but was asymptomatic. In general, she is well-nourished, well-developed female, in no acute distress, sitting in her hospital bed. She is very pleasant, well dressed, well groomed. HEENT: She is normocephalic, atraumatic. Sclerae are anicteric. Mucous membranes are moist. Oropharynx is clear. Nares are patent. Neck is supple. No thyromegaly. No carotid bruits. No meningismus. Chest clear to auscultation bilaterally. Cardiovascular: Regular rate and rhythm. Abdomen is nontender, nondistended. Extremities: No clubbing, cyanosis or edema. Skin is warm and dry. On neurologic exam, she is awake, alert and oriented x3. Her speech is fluent. There is no dysarthria. Repetition is intact. Recall of recent and remote events is intact. Vocabulary is intact. Her mood is concerned. Affect mood is congruent. Cranial Nerves: Pupils are equal, round and reactive to light and accommodation. Extraocular muscles are intact. She has no diplopia, no nystagmus, no ptosis. Visual singer are full to confrontation. Facial sensation is intact to light touch. Face is symmetric bilaterally. Hearing is intact bilaterally. Palate raises symmetrically. Tongue is midline. Sternocleidomastoid and trapezius are 5/5. Motor Exam: She is spontaneously moving all extremities 5/5 throughout. No drift. Tone and bulk are both normal. Sensation is intact to light touch and pinprick throughout. No focal deficits. DTRs are 2+ and symmetric in the upper and lower extremities. Equivocal Babinski's. Eroegl-uq-hgmc rapid alternating movements are intact. There is no resting tremor, no tension tremor, no postural tremor, no past pointing. Gait is normal with normal stance, normal stride. Romberg is minimal sway with eyes open and closed. DIAGNOSTIC STUDIES/LAB DATA: Lab work includes a CBC with diff is normal. Fibrinogen is 239.1. Complete metabolic profile with an AST of 11. Troponin's were negative x3. C-reactive protein of less than 1. Triglyceride of 118, cholesterol 178, LDL of 93, HDL of 61.4. Vitamin B12 of 299, folate of 13.48. TSH of 1.64, free T4 of 0.95. Rheumatoid factor less than 10. She has the imaging as noted above,. Echocardiogram is pending. EEG is pending. ASSESSMENT AND PLAN: Ms. Gonzalez is a 54-year-old female with a history of asthma and a history of melanoma, who is followed regularly by Dermatology, who presents to the hospital with 4 to 5 day history of some speech difficulties that have happened during her [employer] meetings involving some difficulty producing words, possibly some slurred speech or difficulty with pronunciation. No other associated symptoms with these except for some mild pressure across the front of her head and may be some blurry vision. This has happened repetitively in the same way multiple times this week with no precipitating factors that she is aware of. She has no history of seizures. No risk factors for seizures. No history of migraine headaches to speak of. At this point, given the repetitive, similar nature of these symptoms, my suspicion for a TIA or stroke especially in light of her negative MRI and CTA is extremely low, with that said we will get the the echocardiogram and I have ordered a complete hypercoagulable panel. We will also monitor her on telemetry. She did have some episodes of bradycardia. So I think as an outpatient a 30-day monitor is appropriate. Again at this point, though my suspicion that these are TIA or stroke is very low and I do not see any strong indication at this point that we should treat with dual-antiplatelet therapy or aspirin, but this pending the results of her further studies. During her time here, she will be continued to be monitored on telemetry. Another possibility would be a seizure, although she has no history of risk factors. My suspicion is low, but we will get an EEG to look for any seizure like activity. Other considerations would be migraines, although she has no strong history metabolic or endocrinologic, she does not appear to have any episodes of hypoglycemia or hyperglycemia and my suspicion for those are low. She is currently perimenopausal, although I cannot think of anything that would directly cause speech difficulties only. She has been under a tremendous amount of stress and certainly these could be an acute stress reaction. She does have a history of melanoma but I see no evidence of any intracranial lesions in addition she has no other neurologic findings to suggest a specific cause. The plan will be to monitor and continue the studies today. If they are negative, I think that she can go home and I will plan to see her back in my clinic. She knows to return to the ER immediately should she have any new symptoms or concerns. Thank you for the opportunity to participate in the care of this very interesting patient. [id number]/[facility] #: [id number] SHIRIN
[2019-08-10 15:38] VITALS: BP 127/58
--- NOTE | 2019-08-10 20:34 | DS ---
CC: Dr. Mendoza; Dr. Noel Piper * DISCHARGE SUMMARY: DATE OF ADMISSION: 08/09/19 DATE OF DISCHARGE: 08/10/19 PROVIDER: Angela Crane NP PRIMARY CARE PROVIDER: Dr. Mendoza. PRIMARY NEUROLOGIST: Dr. Noel Piper. ATTENDING PHYSICIAN WHILE IN THE HOSPITAL: Dr. Leslie Caballero * (dictated by Angela Crane NP). PRIMARY DIAGNOSIS: Alteration in speech. SECONDARY DIAGNOSES: 1. History of asthma. 2. History of melanoma. STUDIES COMPLETED WHILE IN THE HOSPITAL: She had a CTA of the head, no evidence of carotid stenosis. No evidence of large vessel or intracranial thrombus. She had an MRI of the brain, radiologist's impression: No acute intracranial abnormality. No imaging evidence of demyelination. She had a transthoracic echocardiogram, which showed the cavity size was normal , wall thickness was normal, systolic function was normal. Estimated ejection fraction of 60% to 65%. Wall motion is normal. There is no regional wall motion abnormalities. She had a bubble study performed that was negative. There is no significant pericardial effusion. No significant valvular abnormalities. She had an EEG, which was within normal limits. DISCHARGE MEDICATIONS: No new home medications. Continued Home Med: Xyzal 1 tablet daily as needed. HISTORY OF PRESENT ILLNESS AND HOSPITAL COURSE: Ms. Gonzalez is a 54-year-old female with a past medical history significant for melanoma and asthma, who presented to [facility] after experiencing several episodes of garbled speech and slurred speech. The patient reports that she had difficulty with word finding and enunciating words, slurred speech during her meetings. 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 These were her typical weekly meetings. Due to these symptoms, she presented to the emergency room for further evaluation. The patient does report that these episodes started on Tuesday and continued throughout the week. During this hospitalization, the patient was seen in consultation by Dr. Piper. She had an MRI of the brain that was within normal limits. She had a CTA of the head that showed no evidence of stenosis or large vessel occlusion. She had a transthoracic echocardiogram that was within normal limits. She was monitored on telemetry. Of note, the patient did have some bradycardia on telemetry with the heart rate in the upper 40s that were sinus bradycardia. She was asymptomatic with that bradycardia. The patient did undergo a full TIA workup that showed no evidence and a neurology consult that showed no evidence of TIA or stroke and at this time, she is stable for discharge home. REVIEW OF SYSTEMS: The patient denies any slurred speech, dizziness, weakness or numbness. She denies fever, chills, chest pain or shortness of breath. Denies any nausea, vomiting, diarrhea or abdominal pain. Denies any urinary frequency, urgency or pain with urination. Denies any weakness on one side, trouble swallowing. PHYSICAL EXAMINATION: General: At this time, Ms. Gonzalez is alert and oriented. Resting in her hospital bed. She is in no acute distress. Vital Signs: Blood pressure 127/58, heart rate 61, respirations 16, O2 saturation 99%, temperature was 98.1. HEENT: Head is atraumatic, normocephalic. Eyes, EOMs are intact. Sclerae anicteric and not pale. Oral mucosa is moist. Neck is supple. Lungs are clear to auscultation bilaterally. No wheezes, rales or rhonchi. Cardiac: S1 and S2. Regular rate and rhythm. No murmurs, rubs or gallops. Abdomen is soft, nontender. Bowel sounds are present x4. Extremities: She is able to to move all 4 extremities; There is no clubbing or cyanosis. Neurologic: She is awake, alert and oriented x3. Speech is clear. Thought process is intact. There is gross focal deficits. Hand resource specialist teacher are equal. Tongue is midline. Skin is intact. IMPRESSION AND PLAN: Ms. Gonzalez is a 54-year-old female with past medical history significant for asthma and melanoma, who presented to the emergency room with complaints of garbled and slurred speech, who was admitted under observation for rule out transient ischemic attack. DISCHARGE PLAN: As follows, speech alteration. The patient was seen in consultation by Neurology, who does not feel that there is any evidence of TIA or CVA. The patient did have an EEG that was within normal limits. She had an MRI of the brain that was within normal limits and she had a CTA of the head and neck that was again within normal limits. Neurology has recommended that the patient does not need to continue on aspirin therapy as this is not associated with a TIA. She can return home and resume her daily activities. The patient should call the neurology office tomorrow to schedule a followup appointment. She also should have a 30-day event monitor placed to rule out any cardiac arrhythmias. The patient was instructed to return to the emergency room if she developed any slurred speech, weakness, syncope or any other concerning symptoms. The patient and her verbalized understanding. The patient should follow up with her primary care provider in 4 to 7 days to have a 30-day event monitor setup as per recommendations of neurology. The patient should call Dr. Piper's office for a followup appointment tomorrow to schedule a followup appointment tomorrow. Again, the patient was instructed to return to the emergency room for any weakness, slurred speech, dizziness, syncopal episodes, chest pain or any other concerning symptoms. The patient and her verbalized understanding. DISPOSITION AT DISCHARGE: Home. CONDITION AT DISCHARGE: Stable. TIME SPENT: Time spent on this discharge was 30 minutes, greater than half that time was spent at the bedside reviewing discharge instructions and plans and implementing my discharge instructions. I have discussed this plan with my attending physician, Dr. Leslie Caballero, she is in agreement with my plan. ANGELA CRANE NP [id number]/[facility] #: [id number] SHIRIN
--- NOTE | 2019-08-11 01:34 | EEG ---
ELECTROENCEPHALOGRAPHY: DATE OF STUDY: 08/10/19 - ROOM #441 DATE READ: 08/10/19 ORDERED BY: Angela Crane NP DURATION OF THE RECORDIN - 1529. CLINICAL PROBLEM: Laverne is a 54-year-old female who came into the ED with complaint of difficulty with word finding and enunciating words. The patient stated that she knows what she wants to say, but the wrong words come out. This EEG was obtained to evaluate for epileptiform abnormalities or electrographic seizures. MEDICATION: Tylenol. CLINICAL STATE: Awake and asleep. REPORT: The waking background showed appropriate organization with clearly defined anterior voltage and frequency gradients. There was well-defined posterior dominant rhythm of 11 Hz, which was symmetrical and showed normal reactivity. Anteriorly, there was an expected pattern of lower voltage, irregular, mixed faster frequency. Hyperventilation and photic stimulation were not performed. Attenuation of the occipital rhythm accompanied drowsiness. The sleep background was appropriately organized with well-developed spindles and vertex waves. These sleep transients showed appropriate morphology and are bilaterally synchronous and symmetrical. Again, hyperventilation and photic stimulation were not performed. EKG showed normal sinus rhythm with a rate of 70 beats a minute. CLINICAL IMPRESSION: This is a normal awake and asleep EEG with no evidence of epileptiform abnormalities or focal seizures. [id number]/[facility] #: [id number] [facility]
[2019-08-11 19:48] LABS: Phospholipid Ab IgG 12.1 GPL; Phospholipid Ab IgM, S < 9.4 MPL
[2019-08-13 13:25] LABS: LAC APTT 31 sec (25 - 37); LAC INR 1.2 (0.9-1.1)
== END 2019-08-10 18:00 | disposition home or self-care (01) ==
LOC: ED 15:17 → MEDTELE 18:06
PROVIDERS: ADMIT Internal Medicine; ATTEND Internal Medicine
DX: F80.89 Other developmental disorders of speech and language (principal); J45.909 Unspecified asthma, uncomplicated; Z85.820 Personal history of malignant melanoma of skin; H53.8 Other visual disturbances; F41.9 Anxiety disorder, unspecified; Z98.890 Other specified postprocedural states
CPT/HCPCS: 36415; 70496; 70498; 70553; 80053; 80061; 81240; 81241; 81291; 82607; 82746; 83090; 83605; 84439; 84443; 84484; 85025; 85240; 85300; 85303; 85306; 85307; 85384; 85598; 85610; 85613; 85730; 86038; 86140; 86147; 86431; 93005; 93306; 95819; 99284; A9270-GY; A9579; G0378; Q9967